=== PATIENT | male | born 1980 | race Two or more races ===

== ENCOUNTER 2016-12-17 18:48 | Emergency (ER) | payer SELFPAY ==
[~2016-12-17] VITALS: Ht 167.6 cm; Wt 86.2 kg
--- NOTE | 2016-12-17 19:19 | PHYS DOC ---
Adult General Chief Complaint Chief Complaint: FLANK PAIN HPI HPI Patient is a 36 year old this is a 36-year-old male patient with no significant medical history who presents today with a sharp 8 out of 10 left flank pain worse on bearing down during bowel movements and coughing that began 4 days ago. Patient denies any constipation. He states his stools are soft. Patient denies any fever nausea vomiting urgency frequency dysuria. Denies any hematuria. Historian was patient who speaks and understands a little Turkmen and family members who were interpreting for [employer] language Review of Systems Review of Systems Constitutional: Denies fever or chills [] Eyes: Denies change in visual acuity, redness, or eye pain [] HENT: Denies nasal congestion or sore throat [] Respiratory: Denies cough or shortness of breath [] Cardiovascular: No additional information not addressed in HPI [] GI: Denies abdominal pain, nausea, vomiting, bloody stools or diarrhea [] : Left flank pain Musculoskeletal: Denies back pain or joint pain [] Integument: Denies rash or skin lesions [] Neurologic: Denies headache, focal weakness or sensory changes [] Endocrine: Denies polyuria or polydipsia [] Current Medications Current Medications Current Medications Medications (Trade) Dose Ordered Sig/Joan Start Time Stop Time Status Last Admin Dose Admin Ketorolac Tromethamine (Toradol) 30 mg 1X ONCE 12/17/16 19:30 12/17/16 19:31 DC 12/17/16 19:35 30 MG Magnesium Citrate (Citroma) 296 ml 1X ONCE 12/17/16 20:30 12/17/16 20:31 UNV Simethicone (Gas-X) 80 mg 1X STAT 12/17/16 20:27 12/17/16 20:28 UNV Sodium Chloride 1,000 ml @ 1,000 mls/hr 1X ONCE 12/17/16 19:30 12/17/16 20:29 DC 12/17/16 19:35 1,000 MLS/HR Allergies Allergies Allergies Coded Allergies Type Severity Reaction Last Updated Verified No Known Drug Allergies 12/17/16 No Physical Exam Physical Exam Constitutional: Well developed, well nourished, no acute distress, non-toxic appearance. [] HENT: Normocephalic, atraumatic, bilateral external ears normal, oropharynx moist, no oral exudates, nose normal. [] Eyes: PERRLA, EOMI, conjunctiva normal, no discharge. [] Neck: Normal range of motion, no tenderness, supple, no stridor. [] Cardiovascular:Heart rate regular rhythm, no murmur [] Lungs & Thorax: Bilateral breath sounds clear to auscultation [] Abdomen: Bowel sounds normal, soft, no tenderness, no masses, no pulsatile masses. [] Skin: Warm, dry, no erythema, no rash. [] Back: No tenderness, no CVA tenderness. [] Extremities: No tenderness, no cyanosis, no clubbing, ROM intact, no edema. [] Neurologic: Alert and oriented X 3, normal motor function, normal sensory function, no focal deficits noted. [] Psychologic: Affect normal, judgement normal, mood normal. [] Current Patient Data Vital Signs Vital Signs Date Time Temp Pulse Resp B/P (MAP) Pulse Ox O2 Delivery O2 Flow Rate FiO2 12/17/16 19:15 98.6 93 20 142/94 (110) 97 Room Air 98.6 Lab Values Laboratory Tests Test 12/17/16 19:20 12/17/16 19:40 White Blood Count 9.1 x10^3/uL (4.0-11.0) Red Blood Count 5.58 x10^6/uL (4.30-5.70) Hemoglobin 17.4 g/dL (13.0-17.5) Hematocrit 49.8 % (39.0-53.0) Mean Corpuscular Volume 89 fL (79-100) Mean Corpuscular Hemoglobin 31 pg (25-35) Mean Corpuscular Hemoglobin Concent 35 g/dL (31-37) Red Cell Distribution Width 12.9 % (11.5-14.5) Platelet Count 189 x10^3/uL (140-400) Neutrophils (%) (Auto) 67 % (31-73) Lymphocytes (%) (Auto) 24 % (24-48) Monocytes (%) (Auto) 6 % (0-9) Eosinophils (%) (Auto) 2 % (0-3) Basophils (%) (Auto) 1 % (0-3) Neutrophils # (Auto) 6.1 x10^3uL (1.8-7.7) Lymphocytes # (Auto) 2.2 x10^3/uL (1.0-4.8) Monocytes # (Auto) 0.6 x10^3/uL (0.0-1.1) Eosinophils # (Auto) 0.2 x10^3/uL (0.0-0.7) Basophils # (Auto) 0.1 x10^3/uL (0.0-0.2) Sodium Level 140 mmol/L (136-145) Potassium Level 3.7 mmol/L (3.5-5.1) Chloride Level 105 mmol/L (98-107) Carbon Dioxide Level 25 mmol/L (21-32) Anion Gap 10 (6-14) Blood Urea Nitrogen 16 mg/dL (8-26) Creatinine 0.9 mg/dL (0.7-1.3) Estimated GFR (Cockcroft-Gault) 95.0 BUN/Creatinine Ratio 18 (6-20) Glucose Level 135 mg/dL (70-99) H Calcium Level 9.0 mg/dL (8.5-10.1) Total Bilirubin 0.4 mg/dL (0.2-1.0) Aspartate Amino Transferase (AST) 34 U/L (15-37) Alanine Aminotransferase (ALT) 74 U/L (16-63) H Alkaline Phosphatase 87 U/L (46-116) Total Protein 7.9 g/dL (6.4-8.2) Albumin 3.8 g/dL (3.4-5.0) Albumin/Globulin Ratio 0.9 (1.0-1.7) L Lipase 197 U/L (73-393) Urine Collection Type Unknown Urine Color Yellow Urine Clarity Clear Urine pH 6.0 Urine Specific [place] >=1.030 Urine Protein Negative mg/dL (NEG-TRACE) Urine Glucose (UA) Negative mg/dL (NEG) Urine Ketones (Stick) Negative mg/dL (NEG) Urine Blood Negative (NEG) Urine Nitrite Negative (NEG) Urine Bilirubin Negative (NEG) Urine Urobilinogen Dipstick 1.0 mg/dL (0.2 mg/dL) Urine Leukocyte Esterase Negative (NEG) Urine RBC Occ /HPF (0-2) Urine WBC 0 /HPF (0-4) Urine Bacteria 0 /HPF (0-FEW) Urine Mucus Marked /LPF Laboratory Tests 12/17/16 19:20 Laboratory Tests 12/17/16 19:20 EKG EKG [] Radiology/Procedures Radiology/Procedures []PROCEDURE: CT ABDOMEN PELVIS WO CONTRAST Examination: CT of the abdomen and pelvis without contrast HISTORY: History of left flank pain COMPARISON: None available TECHNIQUE: Axial CT images of the abdomen and pelvis are performed without contrast. Coronal and sagittal reformats were performed. Exposure: One or more of the following individualized dose reduction techniques were utilized for this examination: 1. Automated exposure control 2. Adjustment of the mA and/or kV according to patient size 3. Use of iterative reconstruction technique FINDINGS: Faint patchy bibasilar meniscus opacities in the lungs. No evidence of free air identified in the abdomen. The evaluation of solid organs is limited lack of IV contrast. Evaluation of bowel is limited lateral oral contrast. Examination is limited due to breathing motion artifact. The visualized noncontrasted liver, spleen, and adrenals grossly appears unremarkable. The stomach is mildly distended. The pancreas grossly appears unremarkable. The gallbladder is mildly distended. The small bowel is nondilated. The appendix grossly appears unremarkable. Feces and gas noted in the colon. Urinary bladder is mildly distended No evidence of intrarenal collecting system calculi or hydronephrosis identified. The caliber of the aorta grossly appears unremarkable. No evidence of any bony destructive lesion. Left L5 spondylolysis. IMPRESSION: No evidence of intrarenal collecting system calculi or hydronephrosis. Electronically signed by: Ralph Welsh MD (12/17/2016 7:40 PM) DICTATED and SIGNED BY: RALPH WELSH MD DATE: 12/17/161930 CC: MATY RIVERA APRN; NO PCP; NON,STAFF ~ Course & Med Decision Making Course & Med Decision Making Pertinent Labs and Imaging studies reviewed. (See chart for details) This is a 36-year-old male patient who presents today with left flank pain that began 4 days ago pain is worse on bearing down during bowel movements and coughing. Patient also states he does a job that involves lifting and this could be causing him some of the pain too, (he is a personal chef). Urine analysis is negative for infection or blood. CBC CMP lipase with no acute findings. CT of the abdomen and pelvic was negative for any acute findings but noted stool in colon and gas. Patient be discharged with MiraLAX and simethicone, given Mag citrated in the ED. Discharged with Flexeril and naproxen for pain. Recommended he follows up with her PCP in 1-2 weeks. Provided return precautions and discharged in stable condition.. Dwight Disclaimer Dwight Disclaimer This electronic medical record was generated, in whole or in part, using a voice recognition dictation system. Departure Departure Impression: Primary Impression: Left flank pain Additional Impression: Constipation Disposition: 01 HOME, SELF-CARE Condition: STABLE Patient Instructions: Constipation, Adult, Flank Pain, [id number] Additional Instructions: You were seen for left flank/side pain. Your CT of the abdomen and pelvic was negative for any acute findings but was noted for a lot of stool in your colon as well as gas in your stomach. Please increase your dietary fiber intake through foods like fruits and vegetables, increase your water intake to 64 ounces a day. Take Miralax for constipation and or magnesium citrate. Scripts Naproxen (NAPROXEN) 500 Mg Tablet 1 TAB PO BID, #60 TAB 1 Refill Prov: MATY RIVERA APRN 12/17/16 Cyclobenzaprine Hcl (CYCLOBENZAPRINE HCL) 10 Mg Tablet 1 TAB PO TID, #30 TAB Prov: MATY RIVERA APRN 12/17/16 Polyethylene Glycol 3350 (MIRALAX) 17 Gm Powd.pack 1 PACKET PO DAILY, #30 PACKET 3 Refills Prov: MATY RIVERA APRN 12/17/16 Problem Qualifiers Additional Impression: Constipation Constipation type: unspecified constipation type Qualified Codes: K59.00 - Constipation, unspecified MATY RIVERA APRN Dec 17, 2016 19:19
[2016-12-17] MEDS ORDERED: KETOROLAC TROMETHAMINE 30 MG/ML INJ. IV ONE (19:30)
[2016-12-17] MEDS ORDERED: IV NORMAL SALINE 1000ML BAG 1,000 ML IV ONE (19:30)
[2016-12-17 19:35] LABS: BASO # 0.1 x10^3/uL (0.0-0.2); BASO % 1 % (0-3); EOS % 2 % (0-3); HEMATOCRIT 49.8 % (39.0-53.0); HEMOGLOBIN 17.4 g/dL (13.0-17.5); LYMPH # 2.2 x10^3/uL (1.0-4.8); LYMPH % 24 % (24-48); MEAN CORPUSCULAR HEMOGLOBIN 31 pg (25-35); MEAN CORPUSCULAR HGB CONC 35 g/dL (31-37); MEAN CORPUSCULAR VOLUME 89 fL (79-100); MONO % 6 % (0-9); NEUT % 67 % (31-73); PLATELET COUNT 189 x10^3/uL (140-400); RED BLOOD COUNT 5.58 x10^6/uL (4.30-5.70); RED CELL DISTRIBUTION WIDTH 12.9 % (11.5-14.5); WHITE BLOOD COUNT 9.1 x10^3/uL (4.0-11.0)
--- NOTE | 2016-12-17 19:43 | RAD ---
Examination: CT of the abdomen and pelvis without contrast HISTORY: History of left flank pain COMPARISON: None available TECHNIQUE: Axial CT images of the abdomen and pelvis are performed without contrast. Coronal and sagittal reformats were performed. Exposure: One or more of the following individualized dose reduction techniques were utilized for this examination: 1. Automated exposure control 2. Adjustment of the mA and/or kV according to patient size 3. Use of iterative reconstruction technique FINDINGS: Faint patchy bibasilar meniscus opacities in the lungs. No evidence of free air identified in the abdomen. The evaluation of solid organs is limited lack of IV contrast. Evaluation of bowel is limited lateral oral contrast. Examination is limited due to breathing motion artifact. The visualized noncontrasted liver, spleen, and adrenals grossly appears unremarkable. The stomach is mildly distended. The pancreas grossly appears unremarkable. The gallbladder is mildly distended. The small bowel is nondilated. The appendix grossly appears unremarkable. Feces and gas noted in the colon. Urinary bladder is mildly distended No evidence of intrarenal collecting system calculi or hydronephrosis identified. The caliber of the aorta grossly appears unremarkable. No evidence of any bony destructive lesion. Left L5 spondylolysis. IMPRESSION: No evidence of intrarenal collecting system calculi or hydronephrosis. Electronically signed by: Ralph Welsh MD (12/17/2016 7:40 PM)
[2016-12-17 19:45] LABS: CREATININE 0.9 mg/dL (0.7-1.3); POTASSIUM 3.7 mmol/L (3.5-5.1)
[2016-12-17 19:51] LABS: ALBUMIN 3.8 g/dL (3.4-5.0); ALBUMIN/GLOBULIN RATIO 0.9 (1.0-1.7); TOTAL BILIRUBIN 0.4 mg/dL (0.2-1.0); TOTAL PROTEIN 7.9 g/dL (6.4-8.2)
[2016-12-17 19:58] LABS: BILIRUBIN,URINE NEGATIVE (NEG); GLUCOSE,URINE NEGATIVE (NEG); NITRITE,URINE NEGATIVE (NEG); PROTEIN,URINE NEGATIVE (NEG-TRACE)
[2016-12-17 20:05] LABS: BACTERIA,URINE 0 /HPF (0-FEW); RBC,URINE OCC /HPF (0-2); WBC,URINE 0 /HPF (0-4)
[2016-12-17] MEDS ORDERED: CYCL10TA2 PO (20:26)
[2016-12-17] MEDS ORDERED: POLY17PO29 PO (20:26)
[2016-12-17] MEDS ORDERED: NAPR500T3 PO (20:26)
[2016-12-17] MEDS ORDERED: SIMETHICONE 80 MG TAB.CHEW PO STA (20:27)
[2016-12-17] MEDS ORDERED: MAGNESIUM CITRATE 296 ML SOLUTION. PO ONE (20:30)
[2016-12-17 20:33] VITALS: BP 131/77
== END 2016-12-17 20:55 | disposition home or self-care (01) ==
LOC: ER 18:48
DX: K59.00 Constipation, unspecified (principal); R05 Cough
CPT/HCPCS: 36415; 74176; 80053; 81001; 83690; 85027; 96361; 96374; 99285; J1885; J7030

== ENCOUNTER 2017-02-01 12:36 | Emergency (ER) | payer SELFPAY ==
[~2017-02-01 12:36] MED LIST: CYCL10TA2 PO; NAPR500T3 PO; POLY17PO29 PO
[2017-02-02] MEDS ORDERED: ONDA4TAB10 SL (03:21)
[2017-02-02] MEDS ORDERED: OMEP20TA63 PO (03:21)
== END 2017-02-01 13:49 | disposition left against medical advice (07) ==
LOC: ER 12:36
DX: R10.9 Unspecified abdominal pain (principal); Z53.21 Procedure and treatment not carried out due to patient leaving prior to being seen by health care provider

== ENCOUNTER 2017-02-02 01:36 | Emergency (ER) | payer SELFPAY ==
[~2017-02-02] VITALS: Ht 177.8 cm; Wt 99.8 kg
[2017-02-02 02:17] LABS: BASO % 0 % (0-3); EOS % 2 % (0-3); HEMATOCRIT 49.6 % (39.0-53.0); HEMOGLOBIN 17.1 g/dL (13.0-17.5); LYMPH # 2.6 x10^3/uL (1.0-4.8); LYMPH % 30 % (24-48); MEAN CORPUSCULAR HEMOGLOBIN 31 pg (25-35); MEAN CORPUSCULAR HGB CONC 35 g/dL (31-37); MEAN CORPUSCULAR VOLUME 91 fL (79-100); MONO % 8 % (0-9); NEUT % 61 % (31-73); PLATELET COUNT 181 x10^3/uL (140-400); RED BLOOD COUNT 5.47 x10^6/uL (4.30-5.70); RED CELL DISTRIBUTION WIDTH 13.2 % (11.5-14.5); WHITE BLOOD COUNT 8.8 x10^3/uL (4.0-11.0)
[2017-02-02 02:19] LABS: BILIRUBIN,URINE NEGATIVE (NEG); GLUCOSE,URINE NEGATIVE (NEG); NITRITE,URINE NEGATIVE (NEG); PH,URINE 5.5; PROTEIN,URINE 30 mg/dL (NEG-TRACE); UROBILINOGEN,URINE 0.2 mg/dL (0.2 mg/dL)
[2017-02-02 02:24] LABS: BACTERIA,URINE 0 /HPF (0-FEW); SQUAMOUS EPITHELIAL CELL,UR FEW /LPF
[2017-02-02] MEDS ORDERED: IV NORMAL SALINE 1000ML BAG 1,000 ML IV ONE (02:30)
[2017-02-02] MEDS ORDERED: KETOROLAC 15 MG/ML VIAL. IV ONE (02:30)
[2017-02-02] MEDS ORDERED: ONDANSETRON PF 4 MG/2 ML VIAL. IV ONE (02:30)
[2017-02-02 02:31] LABS: CALCIUM 8.8 mg/dL (8.5-10.1); CREATININE 1.1 mg/dL (0.7-1.3); GFR 75.3; POTASSIUM 3.5 mmol/L (3.5-5.1)
[2017-02-02 02:37] LABS: ALBUMIN 3.7 g/dL (3.4-5.0); ALBUMIN/GLOBULIN RATIO 0.9 (1.0-1.7); TOTAL BILIRUBIN 0.4 mg/dL (0.2-1.0); TOTAL PROTEIN 7.6 g/dL (6.4-8.2)
--- NOTE | 2017-02-02 02:59 | RAD ---
PQRS Compliance Statement: One or more of the following individualized dose reduction techniques were utilized for this examination: 1. Automated exposure control 2. Adjustment of the mA and/or kV according to patient size 3. Use of iterative reconstruction technique CT ABDOMEN PELVIS WO CONTRAST Clinical Indication: abd pain; constipation x 4 days Comparison: CT abdomen and pelvis without contrast, December 17, 2016. Technique: Helical CT imaging of the abdomen and pelvis is performed without IV or oral contrast. Findings: Evaluation of solid organs and bowel is limited without oral and IV contrast, decreasing sensitivity for detection of pathology. Bilateral lower lobe atelectasis or scarring. Mild consolidation with air bronchograms in the right middle lobe is similar. Cardiac size normal. Liver, gallbladder, spleen, pancreas, adrenal glands, abdominal aorta, and kidneys are normal. No obstructive uropathy. Heterogeneous material distends the stomach, correlate to recent ingestions. No dilated small bowel. No colon wall thickening. The appendix is normal. No abdominal adenopathy or free fluid. Urinary bladder is normal. Prostate size normal. No pelvic free fluid. No acute bone abnormality. IMPRESSION: 1. Mild consolidation with air bronchograms in the right middle lobe may be chronic scarring versus mild bronchopneumonia. 2. No acute abdominal or pelvic abnormality. Electronically signed by: Rolando Hodges MD (02/02/2017 2:55 AM) [id number]
[2017-02-02 03:10] VITALS: BP 139/84
[2017-02-02] MEDS ORDERED: OMEP20TA63 PO (03:21)
[2017-02-02] MEDS ORDERED: ONDA4TAB10 SL (03:21)
--- NOTE | 2017-02-02 03:21 | PHYS DOC ---
Past Medical History Past Medical History: No Pertinent History Past Surgical History: No Surgical History Alcohol Use: None Drug Use: None Adult General Chief Complaint Chief Complaint: ABDOMINAL PAIN HPI HPI Patient is a 36 year old gentleman who presents here today complaining of midepigastric abdominal pain. Patient has any fevers shakes chills vomiting diarrhea. Patient does complain of nausea. Patient has a dysuria frequency urgency. Patient has any melena or bright red blood per rectum. Patient has any chest pain or short of breath. Patient has any cough. Patient has no past medical history. Patient has no history of hypertension diabetes liver longer kidney problems. Patient has had no prior surgeries. Patient does not smoke drink or do drugs. Patient is not allergic to any medications. Patient reports is been having pain intermittently since Sunday Patient's physical exam is unremarkable. Patient has some tenderness to palpation to the midepigastric area. Patient has no rebound or guarding. Patient has normal active bowel sounds. Patient has no psoas or obturator signs. Patient's ER workup has been unremarkable. Patient is CT scan of the abdomen pelvis which did not reveal any acute pathology. Patient's CBC and chemistry are all within normal limits. Patient's UA was unremarkable. Assessment and plan 36-year-old gentleman with abdominal pain of unclear etiology. Patient be started on Prilosec and will be given a prescription for Zofran and will have to follow-up with his primary care doctor for further evaluation. Review of Systems Review of Systems Constitutional: Denies fever or chills [] Eyes: Denies change in visual acuity, redness, or eye pain [] All other review systems are negative except as documented in the history of present illness portion. Current Medications Current Medications Current Medications Medications (Trade) Dose Ordered Sig/[facility] Start Time Stop Time Status Last Admin Dose Admin Ketorolac Tromethamine (Toradol) 15 mg 1X ONCE 02/02/17 02:30 02/02/17 02:31 DC 02/02/17 02:23 15 MG Ondansetron HCl (Zofran) 4 mg 1X ONCE 02/02/17 02:30 02/02/17 02:31 DC 02/02/17 02:22 4 MG Sodium Chloride 1,000 ml @ 1,000 mls/hr 1X ONCE 02/02/17 02:30 02/02/17 03:29 DC 02/02/17 02:22 1,000 MLS/HR Allergies Allergies Allergies Coded Allergies Type Severity Reaction Last Updated Verified No Known Drug Allergies 12/17/16 No Physical Exam Physical Exam Constitutional: Well developed, well nourished, no acute distress, non-toxic appearance. [] HENT: Normocephalic, atraumatic, bilateral external ears normal, oropharynx moist, no oral exudates, nose normal. [] Eyes: PERRLA, EOMI, conjunctiva normal, no discharge. [] Neck: Normal range of motion, no tenderness, supple, no stridor. [] Cardiovascular:Heart rate regular rhythm, no murmur [] Lungs & Thorax: Bilateral breath sounds clear to auscultation [] Abdomen: Bowel sounds normal, soft, no tenderness, no masses, no pulsatile masses. [] Skin: Warm, dry, no erythema, no rash. [] Back: No tenderness, no CVA tenderness. [] Extremities: No tenderness, no cyanosis, no clubbing, ROM intact, no edema. [] Neurologic: Alert and oriented X 3, normal motor function, normal sensory function, no focal deficits noted. [] Psychologic: Affect normal, judgement normal, mood normal. [] Current Patient Data Vital Signs Vital Signs Date Time Temp Pulse Resp B/P (MAP) Pulse Ox O2 Delivery O2 Flow Rate FiO2 02/02/17 03:10 72 139/84 (102) 95 Room Air 02/02/17 02:42 16 02/02/17 01:49 98.6 98.6 Lab Values Laboratory Tests Test 02/02/17 01:54 02/02/17 02:00 White Blood Count 8.8 x10^3/uL (4.0-11.0) Red Blood Count 5.47 x10^6/uL (4.30-5.70) Hemoglobin 17.1 g/dL (13.0-17.5) Hematocrit 49.6 % (39.0-53.0) Mean Corpuscular Volume 91 fL (79-100) Mean Corpuscular Hemoglobin 31 pg (25-35) Mean Corpuscular Hemoglobin Concent 35 g/dL (31-37) Red Cell Distribution Width 13.2 % (11.5-14.5) Platelet Count 181 x10^3/uL (140-400) Neutrophils (%) (Auto) 61 % (31-73) Lymphocytes (%) (Auto) 30 % (24-48) Monocytes (%) (Auto) 8 % (0-9) Eosinophils (%) (Auto) 2 % (0-3) Basophils (%) (Auto) 0 % (0-3) Neutrophils # (Auto) 5.3 x10^3uL (1.8-7.7) Lymphocytes # (Auto) 2.6 x10^3/uL (1.0-4.8) Monocytes # (Auto) 0.7 x10^3/uL (0.0-1.1) Eosinophils # (Auto) 0.2 x10^3/uL (0.0-0.7) Basophils # (Auto) 0.0 x10^3/uL (0.0-0.2) Sodium Level 139 mmol/L (136-145) Potassium Level 3.5 mmol/L (3.5-5.1) Chloride Level 102 mmol/L (98-107) Carbon Dioxide Level 26 mmol/L (21-32) Anion Gap 11 (6-14) Blood Urea Nitrogen 15 mg/dL (8-26) Creatinine 1.1 mg/dL (0.7-1.3) Estimated GFR (Cockcroft-Gault) 75.3 BUN/Creatinine Ratio 14 (6-20) Glucose Level 184 mg/dL (70-99) H Calcium Level 8.8 mg/dL (8.5-10.1) Total Bilirubin 0.4 mg/dL (0.2-1.0) Aspartate Amino Transferase (AST) 33 U/L (15-37) Alanine Aminotransferase (ALT) 66 U/L (16-63) H Alkaline Phosphatase 97 U/L (46-116) Total Protein 7.6 g/dL (6.4-8.2) Albumin 3.7 g/dL (3.4-5.0) Albumin/Globulin Ratio 0.9 (1.0-1.7) L Lipase 200 U/L (73-393) Urine Collection Type Unknown Urine Color Yellow Urine Clarity Clear Urine pH 5.5 Urine Specific [place] >=1.030 Urine Protein 30 mg/dL (NEG-TRACE) Urine Glucose (UA) Negative mg/dL (NEG) Urine Ketones (Stick) Negative mg/dL (NEG) Urine Blood Trace (NEG) Urine Nitrite Negative (NEG) Urine Bilirubin Negative (NEG) Urine Urobilinogen Dipstick 0.2 mg/dL (0.2 mg/dL) Urine Leukocyte Esterase Negative (NEG) Urine RBC 1-2 /HPF (0-2) Urine WBC 1-4 /HPF (0-4) Urine Squamous Epithelial Cells Few /LPF Urine Amorphous Sediment Present /HPF Urine Bacteria 0 /HPF (0-FEW) Urine Mucus Marked /LPF Laboratory Tests 02/02/17 01:54 Laboratory Tests 02/02/17 01:54 EKG EKG [] Radiology/Procedures Radiology/Procedures [] Course & Med Decision Making Course & Med Decision Making Pertinent Labs and Imaging studies reviewed. (See chart for details) [] Dragon Disclaimer Dragon Disclaimer This electronic medical record was generated, in whole or in part, using a voice recognition dictation system. Departure Departure Impression: Primary Impression: Abdominal pain Disposition: HOME, SELF-CARE Condition: STABLE Referrals: NO PCP (PCP) Patient Instructions: Abdominal Pain (Nonspecific) Scripts Ondansetron (ZOFRAN ODT) 4 Mg Tab.rapdis 1 TAB SL Q6HRS Y for NAUSEA, #12 TAB Prov: SHALOM JUAREZ MD 02/02/17 Omeprazole Magnesium (PRILOSEC OTC) 20 Mg Tablet.dr 1 TAB PO DAILY, #30 TAB 3 Refills Prov: SHALOM JUAREZ MD 02/02/17 SHALOM JUAREZ MD Feb 02, 2017 03:21
== END 2017-02-02 03:31 | disposition home or self-care (01) ==
LOC: ER 01:36
DX: R10.13 Epigastric pain (principal); R11.0 Nausea; R30.0 Dysuria; R39.15 Urgency of urination; R35.0 Frequency of micturition
CPT/HCPCS: 36415; 74176; 80053; 81001; 83690; 85027; 96361; 96374; 96375; 99285; J1885; J2405; J7030

== ENCOUNTER 2018-02-18 21:21 | Emergency (ER) | payer SELFPAY | END 2018-02-18 23:42 | disposition home or self-care (01) | LOC: ER 21:21 | DX: M17.12 Unilateral primary osteoarthritis, left knee (principal); M19.021 Primary osteoarthritis, right elbow | CPT/HCPCS: 73080; 73564; 99284 ==